=== PATIENT | male | born 1945 | race Caucasian/White ===

== ENCOUNTER 2019-07-13 05:45 | Day surgery (SDC) | payer MEDICARE ==
[~2019-07-13] VITALS: Ht 185.4 cm; Wt 99.8 kg
[~2019-07-13 05:45] MED LIST: BEE POLLEN550 MG PO; BISOPROLOL FUMA10 MG PO; CO Q-1010 MG PO; COZAAR100 MG PO; DICLOFENAC SODI75 MG PO; ELIQUIS5 MG PO; FUROSEMIDE40 MG PO; HYDRALAZINE HCL25 MG PO; K-TAB ER20 MEQ PO; LIPITOR40 MG PO; MAGNESIUM250 M1 PO; METOLAZONE2.5 MG PO; PROAIR RESPICL90 MCG INH; ROBAXIN-750750 MG PO; VITAMIN D50000 UNI1 PO
--- NOTE | 2019-07-13 06:54 | NUR ---
CHECKED IN ON PATIENT. PATIENT RESTING COMFORTABLY. PATIENT INSTRCTED ON HOW TO USE CALL LIGHT. CALL LIGHT WITHIN REACH. NO QUESTIONS OR COMPLAINTS AT THIS TIME.
--- NOTE | 2019-07-13 07:15 | NUR ---
AT 0705, CHECKED IN ON PATIENT. PATIENT RESTING COMFORTABLY. INSTRUCTED WIREWORKER LIGHT USE. PATIENT STATED THEY WERE ABOUT TO TAKE A NAP. LIGHTS WERE DIMMED. NO OTHER QUESTIONS OR COMPLAINTS AT THIS TIME.
--- NOTE | 2019-07-13 08:04 | NUR ---
07/13/19 0804 Jaja Ibarra 0758-PATIENT ARRIVED TO PACU ON 10L MASK NONAROUSABLE. RN DOING JAW THRUST TO MAINTAIN OPEN AIRWAY ORAL AIRWAY IN PLACE. ABDOMEN ROUND AND SOFT LAYING LEFT LATERAL. 0802-PATIENT MAINTAINING OWN AIRWAY.
--- NOTE | 2019-07-13 09:28 | OR ---
[facility] [address], [place] [address] Signed DATE OF OPERATION: 07/13/2019 SURGEON: Enma Alfonso MD PREOPERATIVE DIAGNOSIS: Screening. POSTOPERATIVE DIAGNOSES: 1. 4 mm polyp at 12 cm. 2. Moderate internal and external hemorrhoids. 3. Indurated prostate (left greater than right). PROCEDURE: Colonoscopy with cold biopsy. ESTIMATED BLOOD LOSS: None. INDICATIONS: Denisha is a 73-year-old gentleman with significant past medical history including his atrial fibrillation, on Eliquis. He had been asked to see me for a followup screening colonoscopy. He describes a negative colonoscopy more than 10 years ago. He really has no lower GI complaints. There is no family history of colon cancer or polyps. In the office, I gave Denisha a pamphlet on colonoscopy and we reviewed that together in detail. He understands the nature of the test along with its risks including, but not limited to gas, bloating, crampy abdominal pain, bleeding, perforation requiring surgery, and missed diagnosis. His cardiac provider felt that three days off Eliquis would be sufficient. We also decided because of his significant medical history, we needed an anesthesia provider to help us with increased monitoring and sedation with propofol. That actually proved to be a dacosta decision. He had expressed understanding and wished to proceed. DESCRIPTION OF PROCEDURE: Denisha was taken into our endoscopy suite and placed in the left lateral decubitus position. He was given IV sedation with propofol per nurse e learning manager. Of course, he is in atrial fibrillation. A digital rectal exam was performed and he has moderate external hemorrhoids. He has good sphincter tone. His prostate gland is only mildly enlarged, but it is moderately indurated. The left is more prominent than the right. The adult colonoscope was then introduced and advanced readily around into the cecum without difficulty. His prep was quite good. We could easily see the appendiceal Electronically Signed By: ENMA ALFONSO MD 07/13/19 0928 PATIENT NAME: DENISHA HANSON OPERATIVE REPORT DATE OF : 49 REPORT #: [id number] PHYSICIAN: ENMA ALFONSO MD PCP: LISSETT GALLAGHER REPORT IS CONFIDENTIAL AND NOT TO BE RELEASED WITHOUT AUTHORIZATION [facility] [address], [place] [address] Signed orifice and the ileocecal valve. We have taken several pictures throughout for photodocumentation. The scope was then slowly withdrawn. We saw no evidence of any polyps in the colon nor diverticulosis. In the rectum at 12 cm, was a very small hyperplastic-appearing 4 mm polyp. We easily removed that with two bites of cold biopsy forceps. The scope was then retroflexed and he does have moderate internal hemorrhoids. He does have some swollen veins in the distal rectum around the internal hemorrhoid columns. I wonder if that is related to some of his right heart failure. That would also go along with his elevated liver function test as well. After this, the gas was suctioned out and the colonoscope removed. Denisha tolerated the procedure quite well. RECOMMENDATIONS: I will see Denisha back in my office in 7 to 14 days to review his results. As always, we will hold any aspirin, NSAIDs, or his Eliquis for one week following the biopsy. Enma Alfonso MD ALB/MODL /[id number] cc: IGNACIO Brady MD Wade R Hunsaker, FNP Copies: TONIO LORENZ ANDREW L MD HUNSAKER, WADE R FNP ~ Electronically Signed By: ENMA ALFONSO MD 07/13/19 0928 PATIENT NAME: DENISHA HANSON OPERATIVE REPORT DATE OF : 49 REPORT #: [id number] PHYSICIAN: ENMA ALFNOSO MD PCP: LISSETT GALLAGHER REPORT IS CONFIDENTIAL AND NOT TO BE RELEASED WITHOUT AUTHORIZATION
--- NOTE | 2019-07-13 13:23 | NUR ---
PT IS ALERT, ORIENTED AND SOMEWHAT ANXIOUS ABOUT TODAY. HE HAS AN ISSUE WITH ANESTHESIA-ISSUES WITH HIS HEART. I ENCOURAGED HIM TO SHARE THIS CONCERN WITH THE DR. ALSO THIS IS HIS FIRST SCOPE, AND HE SAYS HIS LAST. HE IS HAVING THIS BECAUSE OF FAMILY HISTORY. I ENCOURAGED HIM-AND HAD PLEASANT VISIT WITH PT. EXTENDEED A BLESSING, WILL FOLLOW NEEDED
--- NOTE | 2019-07-14 09:56 | PATH ---
[facility] [address] [id number] Signed SPECIMEN(S): A colon polyp @12cm SPECIMEN SOURCE: A. colon polyp @12cm CLINICAL HISTORY: Colonoscopy screening. MICROSCOPIC DESCRIPTION: Histologic sections of all submitted blocks are examined by light microscopy. These findings, together with the gross examination, support the pathologic diagnosis. FINAL PATHOLOGIC DIAGNOSIS: Mucosa, colon at 12 cm, biopsy: - Hyperplastic polyp. LJA:cml:C2NR GROSS DESCRIPTION: The specimen, labeled "JM, polyp at 12 cm," is received in formalin and consists of two mcdowell-white soft tissue fragments ranging from 0.3-0.4 cm in greatest dimension. The specimen is entirely submitted in cassette (A1). AR (under the direct supervision of a pathologist) The Gross Description was prepared using a voice recognition system. The report was reviewed for accuracy; however, sound-alike word errors, addition and/or deletions may occur. If there is any question about this report, please contact Client Services. PERFORMING LABORATORY: The technical component was performed by [employer], [address] [place] [id number] (Sales And Retail Management Recruiter: Salud Cabrera MD; CLIA# [id number]). [facility], [address] [address] (Sales And Retail Management Recruiter: Perez Coker MD; CLIA# [id number]). Diagnostician: Perez Coker MD Pathologist Electronically Signed 07/14/2019 PATIENT NAME: DENISHA HANSON PATHOLOGY DATE OF : 49 REPORT #: [id number] PHYSICIAN: FAN PATHOLOGY PCP: LISSETT GALLAGHER REPORT IS CONFIDENTIAL AND NOT TO BE RELEASED WITHOUT AUTHORIZATION [address] [address] Signed Copies: ~ PATIENT NAME: DENISHA HANSON PATHOLOGY DATE OF : 49 REPORT #: [id number] PHYSICIAN: FAN PATHOLOGY PCP: LISSETT GALLAGHER REPORT IS CONFIDENTIAL AND NOT TO BE RELEASED WITHOUT AUTHORIZATION
== END 2019-07-13 08:50 | disposition home or self-care (01) ==
LOC: OPS 05:45 → DS 05:45 → OPS 06:45
PROVIDERS: Colon & Rectal Surgery
PROC: 0DBP8ZZ Excision of Rectum, Via Natural or Artificial Opening Endoscopic (ICD-10-PCS; principal; 2019-07-13 06:45)
DX: Z12.11 Encounter for screening for malignant neoplasm of colon (principal); K62.1 Rectal polyp; K64.8 Other hemorrhoids; K64.4 Residual hemorrhoidal skin tags; N42.89 Other specified disorders of prostate; E78.5 Hyperlipidemia, unspecified; R73.03 Prediabetes; J44.9 Chronic obstructive pulmonary disease, unspecified; I11.0 Hypertensive heart disease with heart failure; I48.91 Unspecified atrial fibrillation; M54.2 Cervicalgia; R19.7 Diarrhea, unspecified; I27.20 Pulmonary hypertension, unspecified; Z98.890 Other specified postprocedural states; Z79.899 Other long term (current) drug therapy; Z87.891 Personal history of nicotine dependence
CPT/HCPCS: J2704; J7120

== ENCOUNTER 2020-01-20 18:14 | Emergency (ER) | payer MEDICARE ==
[~2020-01-20] VITALS: Ht 185.4 cm; Wt 106.6 kg
[2020-01-20] MEDS ORDERED: TORSEMIDE10 MG PO (18:33)
[2020-01-20] MEDS ORDERED: ZITHROMAX250 MG PO (19:19)
[2020-01-20] MEDS ORDERED: MEDROL4 M1 PO (19:19)
--- NOTE | 2020-01-21 11:01 | EKG ---
[facility] [address] [facility] [place] [address] Signed Atrial fibrillation with rapid ventricular response with premature ventricular or aberrantly conducted complexes Nonspecific ST abnormality Abnormal ECG When compared with ECG of 07-JUL-2019 10:32, ST now depressed in Anterior leads Confirmed by KANE FUNES MD ([id number]) on 01/21/2020 11:00:47 AM Electronically Signed By: KANE FUNES MD 01/21/20 1101 PATIENT NAME: DENISHA HANSON Electrocardiogram DATE OF : 49 PHYSICIAN: KANE FUNES MD REPORT #: [id number] REPORT IS CONFIDENTIAL AND NOT TO BE RELEASED WITHOUT AUTHORIZATION
== END 2020-01-20 19:15 | disposition home or self-care (01) ==
LOC: ED 18:14
DX: J44.1 Chronic obstructive pulmonary disease with (acute) exacerbation (principal); I50.9 Heart failure, unspecified; I48.91 Unspecified atrial fibrillation; Z87.891 Personal history of nicotine dependence; Z79.899 Other long term (current) drug therapy
CPT/HCPCS: 71045; 80053; 83735; 83880; 84484; 85025; 93005; 93010; 99285-25